=== PATIENT | female | born 1940 | race Caucasian/White ===

== ENCOUNTER → 2016-09-07 | Outpatient (CLI) | payer OTHER | LOC: MMPC 11:11 | PROVIDERS: ATTEND Internal Medicine | DX: E11.9 Type 2 diabetes mellitus without complications (principal); E83.52 Hypercalcemia; E21.0 Primary hyperparathyroidism; M81.0 Age-related osteoporosis without current pathological fracture; E66.9 Obesity, unspecified; E03.9 Hypothyroidism, unspecified; I10 Essential (primary) hypertension | CPT/HCPCS: 99214; G0463 ==

== ENCOUNTER → 2016-09-15 | Outpatient (CLI) | payer OTHER ==
[2016-09-15 08:19] LABS: BASOPHILS # (AUTO) 0.03 10*3/UL; BASOPHILS % (AUTO) 0.5 % (0-1); EOSINOPHILS % (AUTO) 1.8 % (0-8); HEMATOCRIT 43.9 % (37.0-47.0); HEMOGLOBIN 14.7 g/dL (12.0-16.0); IMM GRAN % (AUTO) 0.2 % (0-5); IMM GRAN# (AUTO) 0.01 10*3/UL; LYMPHOCYTES # (AUTO) 2.06 10*3/uL; LYMPHOCYTES % (AUTO) 33.4 % (10-50); MEAN CORPUSCULAR HEMOGLOBIN 30.1 PG (27-31); MEAN CORPUSCULAR HGB CONC 33.5 g/dL (33-37); MEAN PLATELET VOLUME 9.8 FL (7.4-12.2); MONOCYTES # (AUTO) 0.76 10*3/UL (0.3-0.8); MONOCYTES % (AUTO) 12.3 % (5-15); NEUTROPHILS % (AUTO) 51.8 % (50-80); RDW COEFFICIENT OF VARIATION 13.3 % (11.5-14.5); RED BLOOD COUNT 4.88 10^6/uL (4.20-5.40); WHITE BLOOD COUNT 6.17 10^3/uL (4.8-10.8)
[2016-09-15 08:26] LABS: PLATELET MORPHOLOGY COMMENT NORMAL MORPHOLOGY (NORM)
[2016-09-15 08:38] LABS: HEMOGLOBIN A1C 6.85 % (4.2-6.0); MEAN BLOOD GLUCOSE (CALC) 142.105 mg/dL
[2016-09-15 11:28] LABS: BILIRUBIN,TOTAL 0.6 mg/dL (0.3-1.2); BUN/CREATININE RATIO 23.33 (6-20); C-REACTIVE PROTEIN 0.7 mg/dL (0.0-0.9); CALCIUM 10.5 mg/dL (8.7-10.7); CREATININE 0.6 mg/dL (0.50-1.20); PHOSPHORUS 3.7 mg/dl (2.4-4.3); POTASSIUM 4.8 meq/L (3.8-5.2); TOTAL PROTEIN 7.4 g/dL (6.1-8.0)
== END ==
LOC: LAB 08:03
PROVIDERS: ATTEND Internal Medicine
DX: E11.9 Type 2 diabetes mellitus without complications (principal); E21.0 Primary hyperparathyroidism; I10 Essential (primary) hypertension; E78.5 Hyperlipidemia, unspecified
CPT/HCPCS: 36415; 80053; 83036; 83970; 84100; 85025; 86140

== ENCOUNTER → 2016-09-21 | Outpatient (CLI) | payer OTHER ==
--- NOTE | 2016-09-21 12:15 | DI ---
CT BONE DENSITOMETRY OF THE SPINE AND HIP, 09/21/2016 10:46 AM : Clinical History: Osteoporosis. Previous Exam: December 15, [address] (QCT) Bone Mineral Densitometry: The [place] scans are normal. Low dose scans are obtained of the lumbar spine and sampling is obtaine d through the midbodies of L1 and L2. The average volumetric bone mineral density (BMD) of the lumbar spine is 77.0 mg/cm3. This value corresponds to a volumetric T-score of -3.5 and Z-score of -0.1 as assessed by this BMD software. Volumetric 3D QCT and areal DEXA T-scores and Z-scores are not directl y equivalent. Using the [employer]'s (ACR) volumetric QCT trabecular spine BMD con version table that is closely equivalent to the areal WHO diagnostic categories, this patient falls i nto the category of osteoporosis. CT X-Ray Absorptiometry (CTXA) Hip Bone Mineral Densitometry: Low dose scans are obtained through the hips for assessment of bone mineral density (BMD) and T-score s and Z-scores of the left hip. Total hip BMD: 0.790 mg/cm2 T-score: -1.1 Z-score: Femoral neck BMD: 0.651 mg/cm2 T-score: -1.3 Z-score: Note: T-scores of the spine and hip exhibit discordant readings approximately 40% of the time in eval uated patients. Changes in BMD determined either by volumetric QCT or areal DEXA are more reliable in assessment of change in a patient's BMD status rather than changes in T-scores. The CTXA hip CT bone mineral density measurements and the resultant T-scores and Z-scores are exact hip DEXA scan equival ents. The femoral neck T-score can be used in the WHO's FRAX program for assessing an untreated patie nt's 10 year fracture risk. READING: Osteoporosis of the lumbar spine and osteopenia of the left hip.
== END ==
LOC: CT 10:40
PROVIDERS: ATTEND Internal Medicine
DX: M81.0 Age-related osteoporosis without current pathological fracture (principal)
CPT/HCPCS: 77078

== ENCOUNTER → 2016-12-06 | Outpatient (CLI) | payer OTHER ==
[2016-12-06 10:51] LABS: HEMOGLOBIN A1C 7.24 % (4.2-6.0)
[2016-12-06 11:19] LABS: CALCIUM 11.1 mg/dL (8.7-10.7)
== END ==
LOC: MOB LAB 09:43
PROVIDERS: ATTEND Internal Medicine
DX: E11.9 Type 2 diabetes mellitus without complications (principal); E21.0 Primary hyperparathyroidism; I10 Essential (primary) hypertension
CPT/HCPCS: 36415; 80048; 83036

== ENCOUNTER → 2016-12-14 | Outpatient (CLI) | payer OTHER ==
[2016-12-14 11:25] LABS: BUN/CREATININE RATIO 28.57 (6-20); CALCIUM 10.9 mg/dL (8.7-10.7); MAGNESIUM 2.1 mg/dL (1.6-2.4); PHOSPHORUS 3.3 mg/dl (2.4-4.3); SERUM ALBUMIN 4.4 g/dL (3.5-4.8)
== END ==
LOC: MOB LAB 09:13
PROVIDERS: ATTEND Internal Medicine
DX: I10 Essential (primary) hypertension (principal); E78.5 Hyperlipidemia, unspecified; E21.0 Primary hyperparathyroidism; M81.0 Age-related osteoporosis without current pathological fracture
CPT/HCPCS: 36415; 80053; 83735; 83970; 84100

== ENCOUNTER → 2017-03-08 | Outpatient (CLI) | payer OTHER | LOC: MMPC 10:00 | PROVIDERS: ATTEND Internal Medicine | DX: E11.9 Type 2 diabetes mellitus without complications (principal); M81.0 Age-related osteoporosis without current pathological fracture; E21.0 Primary hyperparathyroidism; E66.9 Obesity, unspecified | CPT/HCPCS: 99214 ==

== ENCOUNTER → 2017-03-09 | Outpatient (CLI) | payer OTHER ==
[2017-03-09 10:35] LABS: HEMOGLOBIN A1C 6.87 % (4.2-6.0)
[2017-03-09 10:49] LABS: FREE T4 (FREE THYROXINE) 1.63 ng/dL (0.93-1.71)
== END ==
LOC: MOB LAB 08:05
PROVIDERS: ATTEND Internal Medicine
DX: E11.9 Type 2 diabetes mellitus without complications (principal); E21.0 Primary hyperparathyroidism; M81.0 Age-related osteoporosis without current pathological fracture; E66.9 Obesity, unspecified
CPT/HCPCS: 36415; 83036; 83970; 84439; 84443

== ENCOUNTER 2018-10-11 10:09 | Inpatient (IN) ==
[2018-10-11] MEDS ORDERED: Sodium Chloride 0.9% 1,000 ML PRIMARY IV ONE (10:23)
[2018-10-11] MEDS ORDERED: ONDANSETRON 4 MG/2 ML VIAL IVP ONE (10:23)
[2018-10-11] MEDS ORDERED: KETOROLAC 15 MG/1 ML VIAL IVP ONE (10:23)
--- NOTE | 2018-10-11 10:27 | PDOC ---
Lower Extremity Problem HPI - General Chief Complaint: Lower Extremity Problem/Injury Stated Complaint: PAIN,SWELLING LEFT GREAT TOE Date Seen by Provider: 10/11/18 Time Seen by Provider: 10:10 Source: POSITIVE: Patient, EMS Exam Limitations: POSITIVE: No limitations Nurse's Notes Reviewed & Considered: Yes - History of Present Illness Initial Comments: This is a well-developed, well-nourished, 78-year-old female complaining of pain and swelling in her left great toe that has been ongoing for an unknown period of time. She denies any history of trauma. Body Location Affected: REPORTS: Lower Extremity (L) Timing: REPORTS: Gradual, Getting Worse Duration: <24 hours Severity: Severe Recent Injury: REPORTS: Possibly Context of Injury: DENIES: Fall, Twist, Direct Blow, Incision, Burn, Crush, Stab, Prolonged Pressure on Ext, Other Location at Time of Onset: REPORTS: Home Quality: REPORTS: Aching, "Pain", Stabbing, Throbbing, Tenderness Modifying Factors: REPORTS: Walking (Walking and movement causes increased pain), Movement, Nothing Relieves Associated Symptoms: DENIES: Chest Pain, Shortness of Breath, Rapid Heart Rate, Fainting, Other Similar Symptoms Previously: No Recent Care Received: REPORTS: Denies Any Prior Injuries Related to Current Complaint?: No - Patient Home Medications Home Medications: Home Medications Carvedilol 1 tab-cap PO BID #180 tab 01/05/17 Lancets [Ultra Thin Lancets] 0 unit .ROUTE .MEDSUPPLY 02/10/18 levothyroxine 25 mcg capsule 12.5 mcg PO QDAY #60 cap 06/18/18 blood sugar diagnostic strips 1 strip MISCELLANEOUS BID PRN #100 strip 08/15/18 ascorbic acid (vitamin C) 1,000 mg tablet 1,000 mg PO QDAY tab 08/21/18 aspirin 81 mg tablet,delayed release 81 mg PO QDAY tab 08/21/18 benazepril 40 mg tablet 40 mg PO QDAY tab 08/21/18 calcium carbonate-vitamin D3 600 mg (1,500 mg)-400 unit capsule 1 cap PO BID c ap 08/21/18 carvedilol 25 mg tablet 25 mg PO BID tab 08/21/18 cholecalciferol (vitamin D3) 2,000 unit capsule 2,000 unit PO QDAY #0 cap 08/21/18 levothyroxine 150 mcg tablet 150 mcg PO QDAY tab 08/21/18 metformin ER 500 mg 24 hr tablet,extended release 500 mg PO BID tab-cap 08/21/18 milk thistle 150 mg capsule 150 mg PO TID cap 08/21/18 mupirocin 2 % topical ointment 1 applic TOPICAL BID #30 g 08/21/18 omega 3-aqx-pim-fish oil 1,000 mg (120 mg-180 mg) capsule 2 cap PO QDAY #90 cap 08/21/18 vitamin E mixed 1,000 unit capsule 1,000 unit PO QDAY cap 08/21/18 amlodipine 10 mg tablet 10 mg PO QDAY #90 tab 09/20/18 fluticasone 50 mcg/actuation nasal spray,suspension 2 spray INASL QDAY #16 g 10/02/18 glyburide 5 mg tablet 20 mg PO BID #120 tab 10/03/18 Acetaminophen [Tylenol] 650 mg PO Q6H PRN tab 10/13/18 Amoxicillin/Potassium Clav [Augmentin 875-125 Tablet] 1 ea PO BID #8 tab 10/13/18 - Patient Allergies Allergies/Adverse Reactions: Allergies Allergy/AdvReac Type Severity Reaction Status Date / Time propoxyphene napsylate Allergy Unknown RASH Verified 10/11/18 17:13 [From Darvocet-N 100] alendronate sodium AdvReac Mild NAUSEA Verified 10/11/18 17:13 [From Fosamax] ibandronate sodium AdvReac Mild GI Verified 10/11/18 17:13 [From Boniva] simvastatin [From Zocor] AdvReac Mild VOMITING Verified 10/11/18 17:13 codeine AdvReac Unknown VOMITING Verified 10/11/18 17:13 Past Medical History - heen HEENT History: Denies History Cardiovascular History: Hypertension Respiratory History: Other (please comment) Additional Respiratory History: previous smoker "in the 60's" Gastrointestinal History: Gallbladder Disease, Hiatal Hernia Genitourinary History: Denies History Endocrine History: Type 2 Diabetes (oral), Hypothyroidism Musculoskeletal History: Denies History Prosthesis or Implant: No Neurological History: TIA Blood Disorders: Denies History Psychiatric History: Denies History History of Sexually Transmitted Diseases: No Cancer History: Denies History History of MDRO: No History of Other Communicable Diseases: No Alcohol Use: None In the Past 12 Months, Have Used or Abuse Any Substance: None Previous Surgical History: Yes Type / Date of Surgery: FULL HYSTERECTOMY, BACK SURGERY (L5-S1), CHOLECYSTECTOMY Anesthesia Reactions: No Malignant Hyperthermia: No Significant Family History: No pertinent family hx ROS - Limitations ROS Limitations: No Limitations Constitution: REPORTS: Denies Symptoms Cardiovascular: REPORTS: Denies Cardiac Symptoms Respiratory: REPORTS: Denies Resp Symptoms Neurological: REPORTS: Denies Neuro Symptoms Gastrointestinal: REPORTS: Denies GI Symptoms Endocrine: REPORTS: Elevated Glucose Musculoskeletal: REPORTS: Lower Extremity Swelling (Left lower leg) Genitourinary: REPORTS: Denies Symptoms Eyes: REPORTS: Denies Symptoms ENT: REPORTS: Nasal Drainage Skin: REPORTS: Denies Skin Symptoms Lympathic: REPORTS: Denies Lympathic Symptoms Immunologic: POSITIVE: Denies Symptoms Psychiatric: POSITIVE: Denies Psych Symptoms Lower Ext Problem Exam - General Appearance General Appearance: POSITIVE: Alert, Cooperative, No Evidence of Trauma, Mild Distress - Extremities Lower Extremity: POSITIVE: Foot (Swollen foot with tenderness in the MCP joint first toe and tender to palpation over the dorsum of the foot), Ankle (Tenderness and swelling in the medial ankle), Calf (Swelling in the calf with mild tenderness to palpation), Tenderness, Swelling, Pedal Edema Joint Exam: POSITIVE: Limited ROM, Painful, Unable to Bear Weight Vascular: POSITIVE: No Vascular Compromise, Full Pulses, Equal Pulses, Positive Deloris's Sign (Left calf) - Neuro / Psych Neuro/Psych: POSITIVE: Sensation Normal, Motor Normal, Oriented to Person, Oriented to Place, Oriented to Time, Mood Appropriate, Affect Appropriate - Neck / Back / Pelvis Back / Neck: POSITIVE: Normal Inspection, Normal ROM - Skin Skin: POSITIVE: Normal Color, Warm, Dry, No Rash - HEENT HEENT: POSITIVE: Head Inspection Nml, Eyes Inspection Nml, Ears Inspection Nml, Nose Inspection Nml, Oral/Dental Inspect. Nml, Pharynx Inspect. Nml, PERRL, EOMI - Respiratory / CVS Respiratory / CVS: POSITIVE: No Respiratory Distress, Breath Sounds Normal, Regular Rate/Rhythm, Heart Sounds Normal Peripheral Pulses: Radial (R): 4+, Radial (L): 4+, Dorsalis-pedis (R): 4+, Dorsalis-pedis (L): 4+ - Abdomen Abdomen: Soft: (All Quadrants), Normal Bowel Sounds: (All Quadrants), Denies Tenderness: (All Quadrants), No Splenomegaly: (All Quadrants), No Hepatomegaly: (All Quadrants), No Guarding: (All Quadrants), No Rebound: (All Quadrants), No Palpable Pulse: (All Quadrants), No Palpabale Mass: (All Quadrants), No Distention: (All Quadrants), No Rigidity: (All Quadrants) Lower Ext Problem Progress - Results Reviewed by me Xrays/CTs/US Reviewed by me: Yes Discussed with Radiologist: Yes Lab Results Reviewed by Me: Yes CBC and BMP: 10/12/18 04:32 10/12/18 04:32 - Patient's Progress Pain Medication Addressed: POSITIVE: Yes Status: POSITIVE: Improved MDM / ED Course: Patient was evaluated, an IV started, blood drawn and sent to the lab for studies, x-ray of her foot, ankle, ultrasound of her left lower extremity, and MRI of her left lower extremity were obtained. Findings: CBC shows white count of 13.81 with hemoglobin and hematocrit platelets normal. Blood gases show pH is 7.44, PCO2 of 35, bicarbonate 24, base excess of -1. CMP shows a CO2 of 19, calcium 11.1, glucose 155. Hemoglobin A1c is 7.08. Lactic acid is 3.6. BNP is 1.4. CRP is 1.4. ESR is 17. X-ray of her ankle shows no fracture but extensive edema present. X-ray of her foot shows no acute osseous abnormalities. Ultrasound of her left lower extremity shows no DVT. MRI shows no posterior when no abscess, there is however, mild tenosynovitis. Assessment: Foot pain with swelling and possible tenosynovitis. Plan: Patient being admitted by the hospitalist. - Consult Counseled: POSITIVE: Patient, Family, RE: Lab Results, RE: Radiology Results, RE: DX, RE: Need for F/U Patient Care Time - Estimated PCT Patient Care Time (In Minutes): 60 Vital Signs - VS Reviewed Vital Signs Reviewed: Yes Discharge Clinical Impression: Foot swelling, Foot pain, left Discharge Disposition: Admit to Inpatient Condition: Good Date Decision to Admit to Inpatient: 10/11/18 Time Decision to Admit to Inpatient: 15:21
[2018-10-11 10:42] LABS: BASOPHILS # (AUTO) 0.03 10*3/UL; BASOPHILS % (AUTO) 0.2 % (0-1); EOSINOPHILS # (AUTO) 0.06 10*3/UL; EOSINOPHILS % (AUTO) 0.4 % (0-8); Hematocrit [HCT] 44.2 % (37.0-47.0); Hemoglobin [HGB] 14.7 g/dL (12.0-16.0); LYMPHOCYTES # (AUTO) 1.88 10*3/uL; MEAN CORPUSCULAR HEMOGLOBIN 30.7 PG (27-31); MEAN CORPUSCULAR HGB CONC 33.3 g/dL (33-37); MEAN CORPUSCULAR VOLUME 92.3 FL (81-99); MEAN PLATELET VOLUME 10.5 FL (7.4-12.2); MONOCYTES # (AUTO) 1.26 10*3/UL (0.3-0.8); MONOCYTES % (AUTO) 9.1 % (5-15); NEUTROPHILS # (AUTO) 10.54 10*3/UL; NEUTROPHILS % (AUTO) 76.4 % (50-80); RED BLOOD COUNT 4.79 10^6/uL (4.20-5.40)
[2018-10-11 10:44] LABS: VENOUS PH 7.44 (7.32-7.42)
[2018-10-11 10:45] LABS: PLATELET MORPHOLOGY COMMENT NORMAL MORPHOLOGY (NORM); RBC MORPHOLOGY COMMENT NORMAL MORPHOLOGY (NORM); WBC MORPHOLOGY COMMENT NORMAL MORPHOLOGY (NORM)
[2018-10-11 10:55] LABS: HEMOGLOBIN A1C 7.08 % (4.2-6.0)
[2018-10-11] MEDS ORDERED: MORPHINE SULFATE 4 MG/1 ML IVP ONE (11:11)
--- NOTE | 2018-10-11 11:14 | DI ---
LEFT ANKLE, 10/11/2018 10:19 AM: Clinical History: Left ankle pain. Comparison Study: None at this facility. Views: 3 views. Soft Tissues: There is edema in the subcutaneous tissue extending to the very superior margin of the film at least to the distal third of the tibia and fibula. This is more prevalent on the medial than the lateral side. Effusion: No joint effusion present. Joints: Cartilaginous surfaces intact. Bones: No fracture or dislocation. Small 4 mm subchondral lucency in the dome of the talus medially. This may represent a subchondral cyst or a developing osteochondral defect. Readin. There is extensive edema of the subcutaneous tissues in the lower leg and extending to the medial and lateral sides of the ankle. No fracture or dislocation is noted. 2. There is a lucency in the dome of the talus on the medial aspect that may represent a subchondral cyst or a developing osteochondral defect.
--- NOTE | 2018-10-11 11:18 | DI ---
LEFT FOOT EXAM, 10/11/2018 10:19 AM: Clinical History: Pain. Comparison Study: None at this facility. Views: 3 views. Soft Tissues: Soft tissue swelling is present around the lower leg and ankle predominantly on the med ial side as described previously in the ankle exam. Effusion: No joint effusion present. Joints: Arthritic changes are present in the first and second metatarsophalangeal joints. Bones: No fracture or dislocation. Comment: There is a lateral view of the right ankle submitted with this exam and is normal. Reading: Arthritic changes of the first and second metatarsophalangeal joints.
[2018-10-11 11:29] LABS: Erythrocyte Sediment Rate 17 MM/HR (0-20)
[2018-10-11 11:40] LABS: BLOOD UREA NITROGEN 14 mg/dL (7-22); SERUM ALBUMIN 4.8 g/dL (3.5-4.8); Uric Acid 5.3 mg/dl (2.5-7.5)
--- NOTE | 2018-10-11 12:01 | DI ---
VENOUS DOPPLER ULTRASOUND OF THE LEFT LOWER EXTREMITY, 10/11/2018 10:19 AM: Clinical History: Swelling and pain of the left lower leg, ankle, and foot. Previous Exam: None. Technique: 2D real-time imaging and color Doppler ultrasound with compression and augmentation maneuv ers. Deep Venous System: Normal deep venous system from groin to popliteal fossa. Superficial Venous System: Normal greater saphenous vein. Additional Findings: Extensive subcutaneous edema is present in the calf region. Reading: Negative venous Doppler ultrasound of the left lower extremity.
[2018-10-11] MEDS ORDERED: Hold Metformin-See Instruction 1 EACH MIS PRN (12:21)
[2018-10-11] MEDS ORDERED: DOCUSATE 100 MG CAPSULE PO PRN (17:37)
[2018-10-11] MEDS ORDERED: LIDOCAINE W/ SODIUM BICARB 0.5 ML SYR SUBD PRN (17:37)
[2018-10-11] MEDS ORDERED: CALCIUM CARBONATE 500 MG (TUMS) CHEWABLE TABLET PO PRN (17:37)
[2018-10-11] MEDS ORDERED: ONDANSETRON 4 MG/2 ML VIAL IVP PRN (17:37)
--- NOTE | 2018-10-11 17:51 | PDOC ---
HPI - History of Present Illness Date of Service: 10/11/18 Time of Service: 17:30 Chief Complaint: Pain in the left foot that started yesterday got worse today History of Present Illness: This is a 78 years old female with medical history significant for history of diabetes, hypertension, hypothyroidism and history of polymyalgia rheumatica was on prednisone tapered off just recently who presented to the hospital with history of swelling in the left foot with pain that started today. She said she had some discomfort yesterday but got worse today she have trouble putting weight on the foot because of the pain. She Described the pain as severe when she came into the ER they gave her some morphine and the pain somewhat lessened. She had multiple investigation including slightly elevated white count, slightly elevated CRP and ESR. Other investigation were nonrevealing. Because of continuous symptoms and possibility of cellulitis she was admitted. By time she came into the floor she was rating her pain maybe 7 out of 10 he does not appear though in distress. There is no history of fever, vomiting or chills. Past Medical History Medical History: 1. Hypertension. 2. Diabetes type II on oral hypoglycemic agent. 3. Hypothyroidism. 4. History of polymyalgia rheumatica diagnosed last year recently tapered off the prednisone the end of last month. 5. History of primary hyperparathyroidism. 6. History of hyperlipidemia on no treatment Surgical History: 1. History of lumbar fusion before. 2. History of appendectomy. 3. History of cholecystectomy. 4. History of hysterectomy Family History: Reviewed an Not Pertinent Past Social History: Used to smoke, does not drink, no drugs. Lives by herself. Tobacco Use: Former Smoker In the Past 12 Months, Have Used or Abuse Any of the Following Substance: None Medication / Allergies Home Medications: Home Medications Medication Instructions Recorded Confirmed Type Carvedilol 1 tab-cap PO BID #180 tab 01/05/17 Clinic Lancets [Ultra Thin Lancets] 0 unit .ROUTE .MEDSUPPLY 02/10/18 10/11/18 History levothyroxine 25 mcg capsule 12.5 mcg PO QDAY #60 cap 06/18/18 10/11/18 Rx blood sugar diagnostic strips 1 strip MISCELLANEOUS BID PRN #100 08/15/18 10/11/18 Rx strip ascorbic acid (vitamin C) 1,000 mg 1,000 mg PO QDAY tab 08/21/18 10/11/18 History tablet aspirin 81 mg tablet,delayed 81 mg PO QDAY tab 08/21/18 10/11/18 History release benazepril 40 mg tablet 40 mg PO QDAY tab 08/21/18 10/11/18 History calcium carbonate-vitamin D3 600 1 cap PO BID cap 08/21/18 10/11/18 History mg (1,500 mg)-400 unit capsule carvedilol 25 mg tablet 25 mg PO BID tab 08/21/18 10/11/18 History cholecalciferol (vitamin D3) 2,000 2,000 unit PO QDAY #0 cap 08/21/18 10/11/18 History unit capsule levothyroxine 150 mcg tablet 150 mcg PO QDAY tab 08/21/18 10/11/18 History metformin ER 500 mg 24 hr 500 mg PO BID tab-cap 08/21/18 10/11/18 History tablet,extended release milk thistle 150 mg capsule 150 mg PO TID cap 08/21/18 10/11/18 History mupirocin 2 % topical ointment 1 applic TOPICAL BID #30 g 08/21/18 10/11/18 Rx omega 9-osu-hop-fish oil 1,000 mg 2 cap PO QDAY #90 cap 08/21/18 10/11/18 Hi story (120 mg-180 mg) capsule vitamin E mixed 1,000 unit capsule 1,000 unit PO QDAY cap 08/21/18 10/11/18 History amlodipine 10 mg tablet 10 mg PO QDAY #90 tab 09/20/18 10/11/18 Rx fluticasone 50 mcg/actuation nasal 2 spray INASL QDAY #16 g 10/02/18 10/11/18 Rx spray,suspension glyburide 5 mg tablet 20 mg PO BID #120 tab 10/03/18 10/11/18 Rx Allergies/Adverse Reactions: Allergies Allergy/AdvReac Type Severity Reaction Status Date / Time propoxyphene napsylate Allergy Unknown RASH Verified 10/11/18 17:13 [From Darvocet-N 100] alendronate sodium AdvReac Mild NAUSEA Verified 10/11/18 17:13 [From Fosamax] ibandronate sodium AdvReac Mild GI Verified 10/11/18 17:13 [From Boniva] simvastatin [From Zocor] AdvReac Mild VOMITING Verified 10/11/18 17:13 codeine AdvReac Unknown VOMITING Verified 10/11/18 17:13 Review of Systems - Review of Systems All Systems: Reviewed & No Additional Complaints Except as Stated Exam - Vitals Vital Signs: Vital Signs Temperature 98.4 F Temperature Source Temporal Artery Scan Pulse Rate [Pulse Oximeter] 96 Pulse Rate 103 Respiratory Rate 20 Blood Pressure [Left Arm] 149/91 Blood Pressure 151/77 Pulse Ox 94 Oxygen Delivery Method Room Air Height 5 ft 6 in Weight 200 lb - General General Appearance: No Acute Distress, Cooperative, Obese - Head Head Exam: Normal Inspection, Atraumatic - Eye Eye Exam: POSITIVE: Normal Appearance - ENT ENT Exam: POSITIVE: Normal Exam - Neck Neck Exam: Normal Inspection - Respiratory Respiratory Exam: POSITIVE: Clear to Auscultation - Bilaterally - Cardiovascular Cardiovascular Exam: POSITIVE: RRR - GI/Abdominal GI/Abdominal Exam: POSITIVE: Normal Bowel Sounds, Non Tender, Non Distended, Soft, No Organomegaly - Rectal Rectal Exam: POSITIVE: Deferred - External Exam: POSITIVE: Deferred Exam: POSITIVE: Deferred - Extremities Additional Extremities Exam Details: There is bilateral leg edema. The dorsum of the left foot is swollen there is an area in the middle of the dorsum of the foot that is slightly red and is also tender and warm to touch, there is also tenderness is on the medial side of the foot. I don't think there is a joint effusion. - Back Back Exam: POSITIVE: Normal Inspection - Neurological Neurological Exam: POSITIVE: Alert, Oriented x 3, Reflexes Normal, Normal Gait, CN II-XII Intact, No Facial Droop, Speech Intact / Clear, Moves All Extremities Equally, No Fasciculations, No Clonus - Psychiatric Psychiatric Exam: POSITIVE: Normal Affect Results - Labs CBC and BMP: 10/11/18 10:39 10/11/18 10:39 - Imaging Status: Report Reviewed by Me (Anxle X ray 1. There is extensive edema of the subcutaneous tissues in the lower leg and extending to the medial and lateral sides of the ankle. No fracture or dislocation is noted. 2. There is a lucency in the dome of the talus on the medial aspect that may represent a subchondral cyst or a developing osteochondral defect. Foot X ray Arthritic changes of the first and second metatarsophalangeal joints.) Assessment and Plan - Patient Problems (1) Foot pain, left Current Visit: Yes Status: Acute Comment: I did explain to her that there is an area of inflammation on the dorsum of the foot, this could be either a result of an infection which we will treat with antibiotics the other possibility is manifestation of her polymyalgia rheumatica with the swelling and pain. She does not want to be on prednisone. I did tell her if it is secondary to polymyalgia rheumatica there is no response to antibiotics but I'll try anti-inflammatory but it's there is no guarantee this would work. Based on her wish we'll continue with antibiotic and anti- inflammatory for now. Code(s): M79.672 - Pain in left foot (2) Cellulitis Current Visit: Yes Status: Acute Comment: This may be cellulitis as I said or inflammation secondary to polymyalgia rheumatica, will put her on Invanz wait for culture result. Code(s): L03.90 - Cellulitis, unspecified (3) Diabetes Current Visit: Yes Status: Acute Comment: will Put her on sliding scale. Code(s): E11.9 - Type 2 diabetes mellitus without complications (4) Hypertension, benign Current Visit: No Status: Chronic Onset Date: 10/09/14 Comment: Same medications Code(s): I10 - Essential (primary) hypertension (5) Polymyalgia rheumatica Current Visit: Yes Status: Acute Comment: Her symptoms may be due to the polymyalgia rheumatica she refused the prednisone well try NSAID and antibiotic in case this is an infection. If she doesn't respond then its likely manifestation of polymyalgia rheumatica Code(s): M35.3 - Polymyalgia rheumatica
[2018-10-11] MEDS ORDERED: Hypromellose/Glycerin/PEG 400 Ophth Soln 15 ML DROPS EACH EYE PRN (18:13)
[2018-10-11] MEDS: ACETAMINOPHEN 325 MG TABLET PO PRN (19:15)
[2018-10-11] MEDS: Ertapenem Inj 1 GM in Sodium Chloride 0.9% 100 ML IV SCH (19:16)
[2018-10-11] MEDS: CARVEDILOL 12.5 MG TABLET PO SCH (20:55)
[2018-10-11] MEDS: MELATONIN 5 MG TABLET PO SCH (20:56)
[2018-10-12] MEDS: ACETAMINOPHEN 325 MG TABLET PO PRN ×3 (02:25→17:19)
[2018-10-12] MEDS: LEVOTHYROXINE 75 MCG TABLET PO SCH (04:36)
[2018-10-12 05:25] LABS: BASOPHILS # (AUTO) 0.03 10*3/UL; BASOPHILS % (AUTO) 0.4 % (0-1); EOSINOPHILS # (AUTO) 0.09 10*3/UL; EOSINOPHILS % (AUTO) 1.1 % (0-8); Hematocrit [HCT] 39.7 % (37.0-47.0); Hemoglobin [HGB] 13.1 g/dL (12.0-16.0); LYMPHOCYTES # (AUTO) 2.63 10*3/uL; MEAN CORPUSCULAR VOLUME 94.1 FL (81-99); MEAN PLATELET VOLUME 10.5 FL (7.4-12.2); MONOCYTES # (AUTO) 1.24 10*3/UL (0.3-0.8); NEUTROPHILS # (AUTO) 4.28 10*3/UL; NEUTROPHILS % (AUTO) 51.6 % (50-80); RED BLOOD COUNT 4.22 10^6/uL (4.20-5.40)
[2018-10-12 05:43] LABS: PLATELET MORPHOLOGY COMMENT NORMAL MORPHOLOGY (NORM); RBC MORPHOLOGY COMMENT NORMAL MORPHOLOGY (NORM); WBC MORPHOLOGY COMMENT NORMAL MORPHOLOGY (NORM)
[2018-10-12] MEDS ORDERED: Insulin Lispro Flexpen 300 UNIT/3 ML INSULN.PEN SUBCUT SCH (07:00)
[2018-10-12] MEDS: Naproxen Tab 500 MG TAB PO SCH ×2 (07:32→17:18)
[2018-10-12] MEDS: Insulin Lispro Flexpen 300 UNIT/3 ML INSULN.PEN SUBCUT SCH ×3 (07:32→16:19)
[2018-10-12] MEDS: PANTOPRAZOLE 40 MG TABLET PO SCH (07:33)
[2018-10-12 07:53] LABS: BLOOD UREA NITROGEN 10 mg/dL (7-22)
[2018-10-12] MEDS ORDERED: LEVOTHYROXINE SODIUM PO SCH (08:00)
--- NOTE | 2018-10-12 08:22 | DI ---
MRI LEFT ANKLE SCAN WITHOUT AND WITH IV CONTRAST, 10/11/2018 12:21 PM: Clinical History: Swelling and pain of the lower leg and foot. Previous Exam: None at this facility. Technique: Sagittal, axial, and coronal T2-weighted and STIR; and pre-and postcontrast sagittal, axi al, and coronal fat saturated T1 weighted. Contrast Dose: 19 mL of ProHance (279.3 mg/mL). Achilles Tendon: Intact. No tendinosis. Plantar Fascia: No tendinosis. Flexor and Extensor Tendons: Intact. Tenosynovitis of the tibialis posterior and flexor digitorum reina mony tendons, mild. Joints of the Forefoot, Midfoot, and Hindfoot: Arthritic changes in the midfoot. Lateral And Medial Ligaments: Intact Muscular Structures: Intact. Subcutaneous Tissues: Edema in the subcutaneous fat. No abscess. Bones: No evidence of osteomyelitis. Readin. There is no evidence of osteomyelitis or of an abscess. Substantial edema is present. 2. Mild tenosynovitis of the tibialis posterior and flexor digitorum longus tendons.
[2018-10-12] MEDS: ASPIRIN EC 81 MG TABLET PO SCH (08:38)
[2018-10-12] MEDS: CARVEDILOL 12.5 MG TABLET PO SCH ×2 (08:38→20:02)
[2018-10-12] MEDS: BENAZEPRIL 10 MG TABLET PO SCH (08:39)
--- NOTE | 2018-10-12 11:07 | PDOC(PROG) ---
Date of Service: 10/12/18 Time of Service: 11:00 Interval History: Subjective She feels better today compared to yesterday. The pain is better. She said she made like more than 50% improvement. However she did not puts weight on her foot yet. There is still some swelling and redness to the dorsum of the foot. Objective : Data - Labs CBC and BMP: 10/12/18 04:32 10/12/18 04:32 Objective : Exam - General General Appearance: No Acute Distress, Cooperative, Obese - Head Head Exam: Normal Inspection - Eye Eye Exam: Normal Appearance - ENT ENT Exam: Normal Exam - Neck Neck Exam: Normal Inspection - Respiratory Respiratory Exam: Clear to Auscultation - Bilaterally - Cardiovascular Cardiovascular Exam: RRR - GI/Abdominal GI/Abdominal Exam: Normal Bowel Sounds, Non Tender, Non Distended, Soft, No Organomegaly - Rectal Rectal Exam: Deferred - External Exam: Deferred Exam: Deferred - Extremities Additional Extremities Exam Details: There is some dorsal swelling and redness in the middle of the left foot. Still warm there is some tenderness present but not as yesterday. - Back Back Exam: Normal Inspection - Neurological Neurological Exam: Alert, CN II-XII Intact, No Facial Droop, Speech Intact / Clear, Moves All Extremities Equally - Psychiatric Psychiatric Exam: Normal Affect Assessment and Plan - Patient Problems (1) Foot pain, left Current Visit: Yes Status: Acute Comment: Cellulitis versus recurrence of polymyalgia rheumatica. She does not want steroid. We'll continue the current treatment with NSAIDs and IV antibiotics. I did encourage her to get up and walk and see if she can tolerate that. We'll keep her another day on the same treatment and see how things look tomorrow. Code(s): M79.672 - Pain in left foot (2) Cellulitis Current Visit: Yes Status: Acute Comment: Possible cellulitis continue current antibiotics. Code(s): L03.90 - Cellulitis, unspecified (3) Diabetes Current Visit: Yes Status: Acute Comment: She is on sliding scale continue the same. Code(s): E11.9 - Type 2 diabetes mellitus without complications (4) Hypertension, benign Current Visit: No Status: Chronic Onset Date: 10/09/14 Comment: Same med Code(s): I10 - Essential (primary) hypertension (5) Polymyalgia rheumatica Current Visit: Yes Status: Acute Comment: Does not want steroid. Continue NSAID I did tell her this may not work if this is a peripheral manifestation of recurrent polymyalgia disease. Code(s): M35.3 - Polymyalgia rheumatica
[2018-10-12] MEDS: Ertapenem Inj 1 GM in Sodium Chloride 0.9% 100 ML IV SCH (17:20)
[2018-10-12] MEDS: MELATONIN 5 MG TABLET PO SCH (20:02)
[2018-10-13] MEDS: ACETAMINOPHEN 325 MG TABLET PO PRN ×2 (02:15→09:02)
[2018-10-13] MEDS: LEVOTHYROXINE 75 MCG TABLET PO SCH (04:43)
[2018-10-13] MEDS: Naproxen Tab 500 MG TAB PO SCH (06:57)
[2018-10-13] MEDS: PANTOPRAZOLE 40 MG TABLET PO SCH (06:57)
[2018-10-13 07:23] VITALS: RESP 18
[2018-10-13] MEDS: Insulin Lispro Flexpen 300 UNIT/3 ML INSULN.PEN SUBCUT SCH ×2 (07:42→12:20)
--- NOTE | 2018-10-13 07:58 | DCSUMMARY ---
Hospitalization Summary Admit Date: 10/11/2018 Discharge Date: 10/13/18 Hospital Course: Discharge diagnoses 1. Left foot swelling and pain, cellulitis versus a peripheral manifestation of polymyalgia rheumatica 2. History of hypertension 3. History of diabetes 4. History of hypothyroidism 5. History of primary hyperparathyroidism 6. History of hyperlipidemia on no treatment 7. History of polymyalgia rheumatica recently tapered off since steroid 8. Mild tenosynovitis of the tibialis posterior and flexor digitorum longus tendon unclear etiology. Question related to polymyalgia Hospital course This is a 78 years old female with medical history significant for history of diabetes, hypertension, hypothyroidism and history of polymyalgia rheumatica who was just recently tapered off the steroids who presented to the hospital with history of swelling of the left foot with pain that started the day of admission. She did mention that she has some discomfort the day before admission but got worse on the day she presented she had trouble putting weight on the foot because of the pain. She described the pain as being severe when she came into the ER they gave her morphine and pain somewhat lessened. She had multiple investigation which showed slightly elevated white count, slightly elevated CRP and ESR. Ultrasound of the leg was negative for DVT, MRI of the foot showed no evidence of osteomyelitis or an abscess there was edema of the leg, mild tenosynovitis of the tibialis posterior and flexor digitorum longus tendon noted. 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 When I saw her there was swelling on the dorsum of the foot there was an area of redness on the dorsum of the foot there is also tenderness present there. To me this looked either cellulitis or peripheral manifestation of polymyalgia rheumatica we did initially discuss with her starting her on steroid in addition to antibiotic therapy. She declined to be on steroids. So we put her on antibiotics and NSAIDs. Gradually things started to improve, redness started to improve swelling improved pain also much improved she was able to put weight on her foot. On the day of discharge the foot looked much better there was no redness I can see tenderness also seem to be much improved. We thought will continue this current trial of treatment with antibiotics and NSAIDs. I did tell her though if there is recurrence of her symptoms then consider restarting the prednisone then. She agreed with the plan. We discharged her on the Augmentin. Discharge instruction Diet regular Activity as tolerated Medications Current Medication(s) Medication Instructions Recorded Confirmed Type Carvedilol 1 tab-cap PO BID #180 tab 01/05/17 Clinic Lancets [Ultra Thin Lancets] 0 unit .ROUTE .MEDSUPPLY 02/10/18 10/11/18 History levothyroxine 25 mcg capsule 12.5 mcg PO QDAY #60 cap 06/18/18 10/11/18 Rx blood sugar diagnostic strips 1 strip MISCELLANEOUS BID PRN #100 08/15/18 10/11/18 Rx strip ascorbic acid (vitamin C) 1,000 mg 1,000 mg PO QDAY tab 08/21/18 10/11/18 History tablet aspirin 81 mg tablet,delayed 81 mg PO QDAY tab 08/21/18 10/11/18 History release benazepril 40 mg tablet 40 mg PO QDAY tab 08/21/18 10/11/18 History calcium carbonate-vitamin D3 600 1 cap PO BID cap 08/21/18 10/11/18 History mg (1,500 mg)-400 unit capsule carvedilol 25 mg tablet 25 mg PO BID tab 08/21/18 10/11/18 History cholecalciferol (vitamin D3) 2,000 2,000 unit PO QDAY #0 cap 08/21/18 10/11/18 History unit capsule levothyroxine 150 mcg tablet 150 mcg PO QDAY tab 08/21/18 10/11/18 History metformin ER 500 mg 24 hr 500 mg PO BID tab-cap 08/21/18 10/11/18 History tablet,extended release milk thistle 150 mg capsule 150 mg PO TID cap 08/21/18 10/11/18 History mupirocin 2 % topical ointment 1 applic TOPICAL BID #30 g 08/21/18 10/11/18 Rx omega 1-cok-guh-fish oil 1,000 mg 2 cap PO QDAY #90 cap 08/21/18 10/11/18 History (120 mg-180 mg) capsule vitamin E mixed 1,000 unit capsule 1,000 unit PO QDAY cap 08/21/18 10/11/18 History amlodipine 10 mg tablet 10 mg PO QDAY #90 tab 09/20/18 10/11/18 Rx fluticasone 50 mcg/actuation nasal 2 spray INASL QDAY #16 g 10/02/18 10/11/18 Rx spray,suspension glyburide 5 mg tablet 20 mg PO BID #120 tab 10/03/18 10/11/18 Rx Acetaminophen [Tylenol] 650 mg PO Q6H PRN tab 10/13/18 Rx Amoxicillin/Potassium Clav 1 ea PO BID #8 tab 10/13/18 Rx [Augmentin 875-125 Tablet] Condition at discharge was stable for discharge Follow-up with her PCP in 1-2 weeks Exam - Vitals Vital Signs: Vital Signs Temperature 97.1 F Temperature Source Temporal Artery Scan Pulse Rate [Pulse Oximeter] 74 Pulse Rate 103 Respiratory Rate 18 Blood Pressure [Left Arm] 150/72 Blood Pressure 151/77 Pulse Ox 91 Oxygen Delivery Method Room Air Height 5 ft 6 in Weight 205 lb 6 oz - General General Appearance: No Acute Distress, Cooperative, Obese - Head Head Exam: Normal Inspection - Eye Eye Exam: POSITIVE: Normal Appearance - ENT ENT Exam: POSITIVE: Normal Exam - Neck Neck Exam: Normal Inspection - Respiratory Respiratory Exam: POSITIVE: Clear to Auscultation - Bilaterally - Cardiovascular Cardiovascular Exam: POSITIVE: RRR - GI/Abdominal GI/Abdominal Exam: POSITIVE: Normal Bowel Sounds, Non Tender, Non Distended, Soft, No Organomegaly - Rectal Rectal Exam: POSITIVE: Deferred - External Exam: POSITIVE: Deferred - Extremities Additional Extremities Exam Details: The redness in the foot seem to be resolved. Tenderness to be much less. Swelling is also improved - Back Back Exam: POSITIVE: Normal Inspection - Neurological Neurological Exam: POSITIVE: Alert, Oriented x 3, CN II-XII Intact, No Facial Droop, Speech Intact / Clear, Moves All Extremities Equally - Psychiatric Psychiatric Exam: POSITIVE: Normal Affect Patient Problems - Patient Problem List (1) Foot pain, left Current Visit: Yes Status: Acute Code(s): M79.672 - Pain in left foot Category: Medical (2) Cellulitis Current Visit: Yes Status: Acute Code(s): L03.90 - Cellulitis, unspecified Category: Medical (3) Diabetes Current Visit: Yes Status: Acute Code(s): E11.9 - Type 2 diabetes mellitus without complications Category: Medical (4) Hypertension, benign Current Visit: No Status: Chronic Onset Date: 10/09/14 Code(s): I10 - Essential (primary) hypertension Category: Medical (5) Polymyalgia rheumatica Current Visit: Yes Status: Acute Code(s): M35.3 - Polymyalgia rheumatica Category: Medical
[2018-10-13] MEDS: ASPIRIN EC 81 MG TABLET PO SCH (09:02)
[2018-10-13] MEDS: BENAZEPRIL 10 MG TABLET PO SCH (09:02)
[2018-10-13] MEDS: CARVEDILOL 12.5 MG TABLET PO SCH (09:02)
[2018-10-13 11:51] VITALS: BP 151/59; TEMP 97.8; O2SAT 94
[2018-10-13] MEDS: Ertapenem Inj 1 GM in Sodium Chloride 0.9% 100 ML IV SCH (14:15)
== END 2018-10-13 15:25 | disposition home or self-care (01) | DRG 556 ==
LOC: ER 10:09 → MED/SURG 15:34
PROVIDERS: ADMIT Internal Medicine; ATTEND Internal Medicine